=== PATIENT | male | born 1950 | race Caucasian/White ===

== ENCOUNTER → 2019-01-16 | Outpatient (CLI) | payer MEDICARE, BC ==
[~2019-01-16] MED LIST: ALEVE 220MG220 MG PO; ASPIRIN 81M81 MG/TA2 PO; GAS-X80 MG PO; MULTIPLE VITAMI1 CAP PO; PROTONIX 40MG T40 MG PO; TUMS DUAL ACTIO1 CTB PO; ZOHYDRO ER15 MG PO
== END ==
LOC: COL.VAS 12:24
DX: I35.9 Nonrheumatic aortic valve disorder, unspecified (principal)

== ENCOUNTER → 2019-05-12 | Outpatient (CLI) | payer MEDICARE, BC | LOC: COL.RAD 07:51 | DX: K31.84 Gastroparesis (principal) | CPT/HCPCS: A9541 ==

== ENCOUNTER → 2019-05-19 | Outpatient (CLI) | payer MEDICARE, BC | LOC: COL.RAD 07:19 | DX: I77.810 Thoracic aortic ectasia (principal); N28.1 Cyst of kidney, acquired | CPT/HCPCS: Q9967 ==

== ENCOUNTER → 2020-05-11 | Outpatient (CLI) | payer MEDICARE, BC | LOC: COL.RAD 10:30 | DX: I77.810 Thoracic aortic ectasia (principal); Z90.49 Acquired absence of other specified parts of digestive tract | CPT/HCPCS: Q9967 ==

== ENCOUNTER → 2020-06-07 | Outpatient (CLI) | payer MEDICARE, BC | LOC: COL.RAD 10:57 | DX: K57.92 Diverticulitis of intestine, part unspecified, without perforation or abscess without bleeding (principal); N28.1 Cyst of kidney, acquired | CPT/HCPCS: Q9967 ==

== ENCOUNTER 2023-11-24 19:44 | Inpatient (IN) | payer MEDICARE, BC ==
[~2023-11-24] VITALS: Ht 190.5 cm; Wt 122.7 kg
[2023-11-24] MEDS ORDERED: Ondansetron 4 MG/2 ML VIAL IV ONE (20:30)
[2023-11-24] MEDS ORDERED: NS 1,000 ML IV ONE (20:30)
[2023-11-24] MEDS ORDERED: HYDROmorphone 0.5 MG/0.5 ML SYRINGE IV ONE (20:30)
[2023-11-24 20:44] LABS: HEMOGLOBIN 12.7 g/dl (13.5-18.0); MEAN CELL VOLUME 82 fl (80.0-100.0); MEAN CORPUSCULAR HEMOGLOBIN 29 pg (27-31); MEAN CORPUSCULAR HGB CONC 35 g/dl (33.0-37.0); MEAN PLATELET VOLUME 13.3 fl (7.4-10.4); PLATELET COUNT 189 K/mm3 (130-400); RED BLOOD COUNT 4.46 M/mm3 (4.20-5.60); REDCELL DISTRIBUTION WIDTH-CV 13.4 % (11.5-14.5)
[2023-11-24 20:46] LABS: HEMATOCRIT 36.7 % (42.0-52.0)
[2023-11-24 21:13] LABS: ALBUMIN 2.8 g/dL (3.4-4.8); BILIRUBIN,TOTAL 1.8 mg/dL (0.2-1.2); C-REACTIVE PROTEIN 14.55 mg/dL (0.00-0.50); CALCIUM 8.6 mg/dL (8.4-10.2); CREATININE, serum 0.84 mg/dL (0.72-1.25); POTASSIUM 3.6 mEq/L (3.5-4.5); TOTAL PROTEIN 6.1 g/dl (6.2-8.1)
[2023-11-24 21:15] LABS: BAND 14 % (0-10); EOSINOPHIL 1 % (0-4); LYMPHOCYTE 9 % (20.0-51.0); METAMYELOCYTE 1 % (0-0); NEUTROPHILS 73 % (42.0-75.2); PLATELET ESTIMATE NORMAL (NORMAL)
[2023-11-24] MEDS ORDERED: Iohexol 300 - 100 ML VIAL IV ONE (21:37)
[2023-11-24] MEDS ORDERED: NS 100 ML IV SCH (21:38)
[2023-11-24 22:02] LABS: COLLECTION METHOD CLEAN CATCH
[2023-11-24 22:11] LABS: PH 6.5 (5.0-8.5); URINE APPEARANCE CLEAR (CLEAR/HAZY); URINE BLOOD NEGATIVE (NEGATIVE); URINE COLOR Dark Yellow (YELLOW); URINE GLUCOSE NEGATIVE (NEGATIVE); URINE KETONE TRACE (NEGATIVE); URINE NITRATE NEGATIVE (NEGATIVE); URINE PROTEIN(semi-quant) 1+ (NEGATIVE)
[2023-11-24 22:27] LABS: AMORPHOUS CRYSTAL PRESENT (NOT PRESENT); MUCOUS PRESENT (NOT PRESENT); URINE BACTERIA MODERATE /hpf (NONE SEEN); URINE RBC 0-2 /hpf (0-2)
[2023-11-24] MEDS ORDERED: HYDROmorphone 0.5 MG/0.5 ML SYRINGE IV PRN (22:30)
[2023-11-24] MEDS ORDERED: NS 1,000 ML IV SCH (22:30)
[2023-11-24] MEDS ORDERED: ELIQUIS 5MG PO (22:35)
[2023-11-24] MEDS ORDERED: BETAPACE 80MG80 MG PO (22:35)
[2023-11-24] MEDS ORDERED: NORVASC 5MG5 MG/TAB PO (22:36)
[2023-11-24] MEDS ORDERED: LIPITOR20 MG PO (22:36)
[2023-11-24] MEDS ORDERED: PROTONIX 40MG T40 MG PO (22:53)
[2023-11-24] MEDS ORDERED: FLONASEALLERGY NS (22:54)
[2023-11-24] MEDS ORDERED: MOVE FREE JOIN1 EACH PO (22:54)
[2023-11-24] MEDS ORDERED: ALLEGRA ALLERG180 MG PO (22:54)
[2023-11-24] MEDS ORDERED: OMEGA-3 1000 MG1 CAP PO (22:55)
[2023-11-24] MEDS ORDERED: ONE DAILY ESSE0.5 M1 PO (22:55)
[2023-11-24] MEDS ORDERED: OCUVITE1 TA1 PO (22:55)
[2023-11-24] MEDS ORDERED: Fluticasone Nasal 50 MCG/Spray 16 GM BOTTLE NS PRN (23:00)
--- NOTE | 2023-11-24 23:45 | NUR ---
PT ALERT AND ORIENTED WAS ABLE TO WALK TO THE BED FROM [facility] WITHOUT ISSUE. ASSESSED, MEDICATED PER EMAR. EKG ORDERED AND RT CALLED TO GET BASELINE EKG R/T SOLTALOL ON PT HOME MEDICATIONS. IV TO RIGHT AC PATENT WITH NS RUNNING AT 125ML/HR. PAIN RATED 4/10 IN POSTERIOR LOWER BACK. RESPR EVEN AND UNLABORED. ORIENTED TO ROOM AND MADE COMFORTABLE, NO FURTHER NEED EXPRESSED AT THIS TIME. CALL LIGHT WITHIN REACH, PT UP AD CHERRI.
[2023-11-25] VITALS (10 sets, daily range): BP systolic 100–123; BP diastolic 67–80; PULSE 58–71; TEMP 97.6–99.3
--- NOTE | 2023-11-25 05:16 | NUR ---
AFTER EKG PERFORMED, PT FOUND TO BE IN AFIB. THIS IS NOT A NEW FINDING PT DIAGNOSED BY PRIMARY PROVIDER LAST MONTH. NATALIA ROJAS NOTIFIED.
[2023-11-25 06:31] LABS: BASO # 0.1 K/mm3 (0.0-0.2); BASO % 0.9 % (0.0-2.0); EOS # 0.3 K/mm3 (0.0-0.7); EOS % 1.8 % (0.0-4.0); GRAN # 12.8 K/mm3 (1.4-6.5); GRAN % 79.8 % (42.2-75.2); HEMOGLOBIN 12.4 g/dl (13.5-18.0); LYMPH # 1.1 K/mm3 (1.2-3.4); LYMPH % 7.1 % (20.0-51.0); MEAN CELL VOLUME 81 fl (80.0-100.0); MEAN CORPUSCULAR HEMOGLOBIN 28 pg (27-31); MEAN CORPUSCULAR HGB CONC 35 g/dl (33.0-37.0); MEAN PLATELET VOLUME 13.8 fl (7.4-10.4); MONO # 1.5 K/mm3 (0.1-0.6); MONO % 9.1 % (1.7-9.3); PLATELET COUNT 207 K/mm3 (130-400); RED BLOOD COUNT 4.41 M/mm3 (4.20-5.60); REDCELL DISTRIBUTION WIDTH-CV 13.5 % (11.5-14.5)
[2023-11-25 06:45] LABS: HEMATOCRIT 35.5 % (42.0-52.0)
[2023-11-25 06:50] LABS: ALBUMIN 2.7 g/dL (3.4-4.8); CALCIUM 8.1 mg/dL (8.4-10.2); CREATININE, serum 0.84 mg/dL (0.72-1.25); POTASSIUM 3.5 mEq/L (3.5-4.5); TOTAL PROTEIN 5.7 g/dl (6.2-8.1)
--- NOTE | 2023-11-25 07:20 | NUR ---
PATIEMT ASLEEP, RESTING IN BED. PATIBASSAM ARUOSES EASILY TO NAME. CALL LIGHT WTIHIN REACH.
[2023-11-25] MEDS ORDERED: Fexofenadine 180 MG **** subs to Loratadine 10 MG PO SCH (09:00)
[2023-11-25] MEDS ORDERED: Apixaban 5 MG TAB PO SCH (09:00)
[2023-11-25] MEDS ORDERED: Loratadine 10 MG TAB PO SCH (09:00)
[2023-11-25] MEDS ORDERED: Atorvastatin 20 MG TAB PO SCH (09:00)
[2023-11-25] MEDS ORDERED: Pantoprazole 40 MG in NS 10 ML IV SCH (09:00)
--- NOTE | 2023-11-25 09:43 | NUR ---
SW met with patient to complete intake assessment and discuss discharge planning. Patient was alert and sitting in chair, patient's daughter (Ese [phone]) and granddaughter they were permitted to remain in room by patient during intake. Patient shared that he resides in [place] with (Ese [phone]) Patient informed SW that his PCP is Dr Benito and pharmacy of choice is [facility] ([place] location) Patient reports no current DME's is pending a sleep study. Patient reports that he is independent with ADLs. Patient is planning to discharge home once medically stable.
--- NOTE | 2023-11-25 11:00 | NUR ---
PATIENT CALL LIGHT WITHIN REACH, HE ANDRIY ANY NEEDS OR COMPLAINTS AT THSI TIME. PATINTS FAMILY AT BEDSIDE.
[2023-11-25] MEDS ORDERED: Potassium Bicarbonate/Citrate 20 MEQ Effervescent TAB PO ONE (12:00)
--- NOTE | 2023-11-25 16:05 | NUR ---
1606 PATIENT CALLED HE WAS HAVING SEVERE LOWER ABD PAIN. PATINET DESCRIBED PAIN TO BE SHARP AND CONSISTANT. UPON ASSESSMENTS PATIENTS ABDOMEN WAS HARD ALL AROUND. MD NOTIFIED, NO NEW ORDERS AT THIS TIME. PAIN MEDICATION GIVEN, SEE EMAR FOR DETAILS.
--- NOTE | 2023-11-25 17:28 | NUR ---
PATIENT AWAKE AND ALERT, SITTING UP IN BED. CALL LIGHT WITHIN REACH. SUSAN STATED PAIN HAS GOTTEN BETTER AND HE WILL TAKE A WALK TO HELP WITH THE GAS WHEN HIS ARRIVES.
[2023-11-26] VITALS (14 sets, daily range): BP systolic 113–148; BP diastolic 74–92; PULSE 56–72; TEMP 98–99.2
[2023-11-26] MEDS ORDERED: Mag/Al Hydrox/Simeth Susp 30 ML CUP PO ONE (04:30)
[2023-11-26 07:10] LABS: BASO # 0.1 K/mm3 (0.0-0.2); BASO % 0.9 % (0.0-2.0); EOS # 0.5 K/mm3 (0.0-0.7); EOS % 3.5 % (0.0-4.0); GRAN # 11.6 K/mm3 (1.4-6.5); GRAN % 78.6 % (42.2-75.2); LYMPH # 1.1 K/mm3 (1.2-3.4); LYMPH % 7.7 % (20.0-51.0); MEAN CELL VOLUME 82 fl (80.0-100.0); MEAN CORPUSCULAR HEMOGLOBIN 28 pg (27-31); MEAN CORPUSCULAR HGB CONC 35 g/dl (33.0-37.0); MEAN PLATELET VOLUME 14.2 fl (7.4-10.4); MONO # 1.2 K/mm3 (0.1-0.6); MONO % 8.1 % (1.7-9.3); PLATELET COUNT 196 K/mm3 (130-400); RED BLOOD COUNT 3.88 M/mm3 (4.20-5.60); REDCELL DISTRIBUTION WIDTH-CV 13.8 % (11.5-14.5)
[2023-11-26 07:11] LABS: HEMATOCRIT 31.8 % (42.0-52.0)
[2023-11-26 07:16] LABS: ALBUMIN 2.4 g/dL (3.4-4.8); BILIRUBIN,TOTAL 1.3 mg/dL (0.2-1.2); CALCIUM 7.9 mg/dL (8.4-10.2); CREATININE, serum 0.75 mg/dL (0.72-1.25); POTASSIUM 3.7 mEq/L (3.5-4.5); TOTAL PROTEIN 5.5 g/dl (6.2-8.1)
--- NOTE | 2023-11-26 09:58 | NUR ---
Initial visit; Watson thanked for looking in on him and answering his questions regarding the availability of "Holy Communion" here at the hospital. Avionics Installer let him know it would be offered here and wished him and his well.
--- NOTE | 2023-11-26 10:06 | NUR ---
Patient resting in chair, alert and oriented x 4, VSS. Getting fluids and antibiotics per oders. Telemetry in place. States he has pain in abdomen, cramping pain that when it comes he can not sttop it. States is like gas. Assessment completed, meds given. No further needs at this time. Call light within reach.
[2023-11-26] MEDS ORDERED: Magnesium Oxide 400 MG TAB PO SCH (11:12)
[2023-11-26] MEDS ORDERED: Mag/Al Hydrox/Simeth Susp 30 ML CUP PO PRN (11:15)
--- NOTE | 2023-11-26 13:01 | NUR ---
BERTRAND spoke with VON Morgan and requested PT/OT orders to eval. BERTRAND notes this was completed. Discharge Plan: Home
--- NOTE | 2023-11-26 14:30 | NUR ---
Patient had a large incontinent BM, hygiene provided, gown and linens changed. Purewick replaced.
--- NOTE | 2023-11-26 14:36 | NUR ---
Patient coming back from restroom. Loop recorder placed. Site clean, dry intact. Continues getting fluids and antibiotics per orders.
--- NOTE | 2023-11-26 18:05 | NUR ---
Patient continues getting occasional discomfort in his lower abdomen, rating it 2-3/10. Prn's provided. Loop recorded was placed, getting fluids and antibiotics per orders. Report will be given to night RN.
--- NOTE | 2023-11-26 20:30 | NUR ---
UPON SHIFT ASSESSMENT, FERNANDO WAS IN BEDSIDE RECLINER AND AXO X4. IN A 20G RT AC HE HAS NS RUNNING AT 125ML/HR. UPPER CHEST INSCISION FROM LOOP RECORDER PLACEMENT IS CDI. HE CURRENTLY DENIES PAIN OR SOA. VS ARE WNL. TELE IS NS WITH PACs 61 BPM. NO NEEDS STATED AT THIS TIME.
--- NOTE | 2023-11-26 22:15 | NUR ---
Call placed to hospitalistYifan, patient has Na+ 128 with NS IVF at 125ml/hr, however, next bag not scheduled to 0600. Torb [address] 1L free fluid (H2O) restriction, hang another 1000mL bag NS and drop rate to 100mL/hr given.
[2023-11-27] VITALS (13 sets, daily range): BP systolic 121–156; BP diastolic 73–96; PULSE 54–60; TEMP 97.5–99
[2023-11-27 06:37] LABS: BASO # 0.1 K/mm3 (0.0-0.2); EOS # 0.4 K/mm3 (0.0-0.7); EOS % 3.3 % (0.0-4.0); GRAN # 9.2 K/mm3 (1.4-6.5); GRAN % 75.6 % (42.2-75.2); HEMOGLOBIN 11.4 g/dl (13.5-18.0); LYMPH # 1.3 K/mm3 (1.2-3.4); LYMPH % 10.8 % (20.0-51.0); MEAN CELL VOLUME 81 fl (80.0-100.0); MEAN CORPUSCULAR HEMOGLOBIN 29 pg (27-31); MEAN CORPUSCULAR HGB CONC 35 g/dl (33.0-37.0); MEAN PLATELET VOLUME 13.5 fl (7.4-10.4); MONO % 8.2 % (1.7-9.3); PLATELET COUNT 242 K/mm3 (130-400); RED BLOOD COUNT 3.99 M/mm3 (4.20-5.60); REDCELL DISTRIBUTION WIDTH-CV 13.5 % (11.5-14.5)
[2023-11-27 06:38] LABS: HEMATOCRIT 32.2 % (42.0-52.0)
[2023-11-27 06:42] LABS: ALBUMIN 2.5 g/dL (3.4-4.8); CALCIUM 7.9 mg/dL (8.4-10.2); CREATININE, serum 0.7 mg/dL (0.72-1.25); POTASSIUM 3.7 mEq/L (3.5-4.5); TOTAL PROTEIN 5.4 g/dl (6.2-8.1)
--- NOTE | 2023-11-27 07:20 | NUR ---
PATIEINT AWAKE AND ALERT, SITTING UP IN HIS RECLINER. PAITENT DENIES ANY NEEDS OR COMPLAINTS AT THIS TIME. CALL LIGHT WTIHIN REACH. IVF INFUSING PER ORDER (SEE EMAR.)
--- NOTE | 2023-11-27 10:25 | NUR ---
dye house vat worker was notified pt can likely discharge back home today. SW met with pt and at bedside and completed IM from Medicare. Pt signed and verbalized understanding. Copy provided and original in chart. Discharge Plan: home
--- NOTE | 2023-11-27 11:48 | NUR ---
PATIENT ASLEEP, NAPPING IN THE RECLINER. PATIENT AROUSES EASILY TO NAME,, HE DENIES ANY NEEDS , COMPLAINTS OR PAIN AT THIS TIME. CALL LIGHT WITHIN REACH.
--- NOTE | 2023-11-27 16:00 | NUR ---
PATIENT AWAKE AND ALERT, SITTING UP IN HIS RECLINER. PER PATIENT HE HAD SOME DISCOMFORT EARLIER THAT SEEMED TO GO AWAY AFTER HE WALKED THE [place]. PATIENT DENIES ANY PAIN AT THIS TIME. CALL LIGHT WITHIN REACH. PATIENTS AT BEDSIDE.
--- NOTE | 2023-11-27 17:27 | NUR ---
Pt on telemetry, heart rate is still irregular. pt is not showing any symptoms from irregular heart rate at this time. He is in the recliner and states he is not in any pain at this time. is in the room with him. call light within reach.
--- NOTE | 2023-11-27 22:03 | NUR ---
UPON SHIFT ASSSESSMENT, FERNANDO WAS AWAKE IN BEDSIDE RECLINER, IS AXO X4 AND CHEERFUL. HE DENIES CHEST PAIN OR SOA AT THIS TIME. BOWEL SOUNDS ARE AUDIBLE IN ALL QUADRANTS AND HE DENIES ABDOMINAL PAIN AND STATES NO TARRY STOOLS. VS ARE WNL AND TELE IS SINUS LEVAR WITH OCCASIONAL PAC.
[2023-11-28 00:19] VITALS: BP_SYST 124
--- NOTE | 2023-11-28 01:47 | NUR ---
PATIENT SLEEPING PEACEFULLY SUPINE. VS ARE WNL. NS RUNNING AT 50ML/HR.
[2023-11-28 03:53] VITALS: BP 128/82; PULSE 51; TEMP 98.1
[2023-11-28 04:30] VITALS: BP_SYST 128
[2023-11-28 06:31] LABS: HEMOGLOBIN 11.3 g/dl (13.5-18.0); MEAN CELL VOLUME 82 fl (80.0-100.0); MEAN CORPUSCULAR HEMOGLOBIN 29 pg (27-31); MEAN CORPUSCULAR HGB CONC 35 g/dl (33.0-37.0); MEAN PLATELET VOLUME 13.4 fl (7.4-10.4); PLATELET COUNT 272 K/mm3 (130-400); RED BLOOD COUNT 3.95 M/mm3 (4.20-5.60)
[2023-11-28 06:34] LABS: HEMATOCRIT 32.5 % (42.0-52.0)
[2023-11-28 06:46] LABS: CREATININE, serum 0.76 mg/dL (0.72-1.25)
[2023-11-28 06:58] LABS: BAND 3 % (0-10); EOSINOPHIL 6 % (0-4); NEUTROPHILS 66 % (42.0-75.2)
[2023-11-28 06:59] LABS: LYMPHOCYTE 18 % (20.0-51.0); PLATELET ESTIMATE NORMAL (NORMAL)
[2023-11-28 07:29] VITALS: BP 127/82; PULSE 61; TEMP 98.9
--- NOTE | 2023-11-28 08:00 | NUR ---
Patient sitting up in the recliner, A&Ox4. VSS. IV CDI, fluids infusing. Denies pain and discomfort. Loop incision site CDI. Call light within reach
[2023-11-28 09:00] VITALS: BP_SYST 127
[2023-11-28] MEDS ORDERED: BETAPACE 80MG80 MG PO (09:02)
--- NOTE | 2023-11-28 09:02 | NUR ---
structural iron worker was notified patient can discharge today. IM done yesterday. No further needs noted. Discharge Plan: home
[2023-11-28] MEDS ORDERED: AMOXICILLIN 8751 TAB PO (09:06)
[2023-11-28] MEDS ORDERED: MAG-OX 400400 MG/TAB PO (09:07)
--- NOTE | 2023-11-28 09:39 | NUR ---
Discharge paperwork reviewed with the patient. Patient verbalized an understanding to follow doctors orders. IV removed, tip intact. Gauze and coban covering Loop recorder d/c information provided. Patient getting dressed and waiting on ride home. Call light within reach
--- NOTE | 2023-11-28 10:00 | NUR ---
Patient taken by wheelchair to awaiting vehicle with personal belongings. No further needs expressed
== END 2023-11-28 10:00 | disposition home or self-care (01) | DRG 854 ==
LOC: COL.ER 19:44 → MEDICAL 22:33
PROVIDERS: Internal Medicine; Nurse Practitioner; Nurse Practitioner Family; ADMIT Internal Medicine
PROC: 0JH632Z Insertion of Monitoring Device into Chest Subcutaneous Tissue and Fascia, Percutaneous Approach (ICD-10-PCS; principal; 2023-11-26)
DX: A41.9 Sepsis, unspecified organism (principal); E87.1 Hypo-osmolality and hyponatremia; K57.32 Diverticulitis of large intestine without perforation or abscess without bleeding; E87.20 Acidosis, unspecified; J30.2 Other seasonal allergic rhinitis; I10 Essential (primary) hypertension; E78.5 Hyperlipidemia, unspecified; R74.01 Elevation of levels of liver transaminase levels; D64.9 Anemia, unspecified; E87.8 Other disorders of electrolyte and fluid balance, not elsewhere classified; E86.0 Dehydration; E86.1 Hypovolemia; I34.0 Nonrheumatic mitral (valve) insufficiency; R82.81 Pyuria; R73.9 Hyperglycemia, unspecified; G47.30 Sleep apnea, unspecified; K21.9 Gastro-esophageal reflux disease without esophagitis; Z90.89 Acquired absence of other organs; Z90.49 Acquired absence of other specified parts of digestive tract; Z79.01 Long term (current) use of anticoagulants; Z88.8 Allergy status to other drugs, medicaments and biological substances; Z87.891 Personal history of nicotine dependence; Z79.899 Other long term (current) drug therapy; Z85.46 Personal history of malignant neoplasm of prostate; Z23 Encounter for immunization
CPT/HCPCS: C1764; C9113; J0780; J1170; J2405; J2543; J7030; Q9967

== ENCOUNTER → 2024-05-06 | Outpatient (CLI) | payer MEDICARE, BC ==
[~2024-05-06] MED LIST changes: +ALLEGRA ALLERG180 MG PO; +AMOXICILLIN 8751 TAB PO; +BETAPACE 80MG80 MG PO; +ELIQUIS 5MG PO; +FLONASEALLERGY NS; +LIPITOR20 MG PO; +MAG-OX 400400 MG/TAB PO; +MOVE FREE JOIN1 EACH PO; +NORVASC 5MG5 MG/TAB PO; +OCUVITE1 TA1 PO; +OMEGA-3 1000 MG1 CAP PO; +ONE DAILY ESSE0.5 M1 PO
== END ==
LOC: COL.RAD 13:32
DX: M47.816 Spondylosis without myelopathy or radiculopathy, lumbar region (principal); M43.16 Spondylolisthesis, lumbar region

== ENCOUNTER → 2024-05-06 | Outpatient (CLI) | payer MEDICARE, BC | LOC: MHCPAIN 12:28 | DX: M54.16 Radiculopathy, lumbar region (principal); M43.16 Spondylolisthesis, lumbar region | CPT/HCPCS: G0463 ==

== ENCOUNTER → 2024-05-26 | Outpatient (CLI) | payer MEDICARE, BC ==
[~2024-05-26] MED LIST changes: +Iohexol 300 - 10 ML VIAL ONE; +Lidocaine PF 2% (20 MG/ML) 2 ML VIAL ONE
== END ==
LOC: MHCPAIN 11:53
DX: M54.16 Radiculopathy, lumbar region (principal); M54.50 Low back pain, unspecified
CPT/HCPCS: J1100; Q9967